=== PATIENT | female | born 1945 | race Caucasian/White ===

== ENCOUNTER → 2025-01-16 12:38 | Outpatient (REF) | payer MEDICARE, SELFPAY | LOC: HWRCS 12:38 | PROVIDERS: ATTENDING PHYSICIAN Internal Medicine Cardiovascular Disease; FAMILY PHYSICIAN Internal Medicine | DX: I48.0 Paroxysmal atrial fibrillation (principal) | CPT/HCPCS: 93306 ==

== ENCOUNTER → 2025-01-29 08:10 | Outpatient (REF) | payer MEDICARE, SELFPAY | LOC: HWRCS 08:10 | PROVIDERS: ATTENDING PHYSICIAN Internal Medicine Cardiovascular Disease; FAMILY PHYSICIAN Internal Medicine | DX: I48.0 Paroxysmal atrial fibrillation (principal) | CPT/HCPCS: 78452; 93017; A9500; J2785 ==

== ENCOUNTER 2025-02-09 15:15 | Emergency (ER) | payer MEDICARE, SELFPAY ==
[2025-02-09 15:17] VITALS: BP 182/81
[2025-02-09 18:03] VITALS: BP 174/78
--- NOTE | 2025-02-09 18:19 | ED.GENMED ---
History of Present Illness
General
Chief Complaint: Fall
Source: patient
Exam Limitations: none
Time Seen by Provider: 02/09/25 17:46
Nursing documentation reviewed up to this point in time: agreed with
History of Present Illness
History of Present Illness:
Note:
CHIEF COMPLAINT(S)
Fall with subsequent right knee injury and head trauma.
HISTORY OF PRESENT ILLNESS
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 The patient reports tripping while stepping outside, leading to a fall in which she landed on
her right knee and hit her head. She describes the knee as being swollen and as having a 'big round ball' feeling, consistent with an evolving hematoma. The knee has been iced and the swelling is reportedly reducing, though some residual swelling
and bruising persist. The shunt function was discussed, with no issues identified. The patient was primarily concerned about the potential impact on her brain due to the fall, given her medical history with the shunt. Imaging studies have confirmed
the shunt is functioning properly, and there is no acute intracranial injury. Inspection of the knee confirms it is stable despite swelling.
EXTERNAL RECORDS REVIEWED
Imaging studies confirmed the shunt is in proper working condition, and there is no acute intracranial injury.
PHYSICAL EXAM
General: Alert, no acute distress.
Skin: Warm, dry.
Head: Normocephalic, atraumatic.
Neck: Supple, trachea midline.
Eye, Ears, Nose, Mouth, and Throat: Oral mucosa moist.
Cardiovascular: Normal peripheral perfusion, No edema.
Respiratory: Respirations are non-labored.
Gastrointestinal: Abdomen nondistended.
Back: Normal range of motion, Normal alignment.
Musculoskeletal: Bruising and swelling observed on the right knee; knee is stable without signs of fracture. Normal range of motion otherwise.
Neurological: Alert and oriented to person, place, time, and situation, No focal neurological deficit observed.
Psychiatric: Cooperative, appropriate mood & affect.
PROBLEM LIST
Acute Problems:
- Mechanical fall resulting in right knee injury and head trauma.
PLAN
- Continue icing the knee to help with swelling.
- Monitor for any signs of increased pain, swelling, or neurological changes, especially given previous head trauma.
- Ensure follow-up if additional neurological symptoms or knee issues develop.
DIFFERENTIAL DIAGNOSIS
The Differential Diagnosis includes, in no particular order and is not limited to:
1. Soft tissue injury of the knee
2. Contusion
3. Concussion
4. Intracranial hemorrhage (ruled out by imaging)
5. Fracture (ruled out by clinical examination)
6. Hematoma formation
7. Ligamentous injury
8. Effusion or bursitis
9. Shunt malfunction (ruled out by imaging)
10. Synovitis
CARE-UPDATE
02/09/25 - 20:13
Patients recent right knee x-ray shows no signs of fracture, indicating a dislocation instead.
Disposition:
SUMMARY OF ENCOUNTER
The patient, an 80-year-old female with a history of a ventriculoperitoneal shunt, presented after experiencing a mechanical fall, injuring her right knee and head. Swelling and bruising were evident on the knee, which, along with imaging and
clinical examination, indicated no fracture or ligament laxity. Imaging confirmed proper shunt function and absence of acute intracranial injury. The patient expressed concern over potential brain impact due to her shunt history, but was reassured
with normal imaging findings.
DISPOSITION
Discharge.
ASSESSMENT
The patient suffered a mechanical fall leading to a head contusion and right knee contusion. Imaging shows no evidence of knee fracture or intracranial injury. Knee swelling was noted but was stable and improving with icing.
PLAN
- Continue icing the right knee to reduce swelling.
- Monitor for any increased pain, continued swelling, or new neurological symptoms.
- Follow up with primary care and return to the emergency department if symptoms worsen.
INDEPENDENT REVIEW OF LABS AND INTERPRETATION OF TESTS
- My independent interpretation of the right knee x-ray shows no signs of fracture, confirming a diagnosis of joint dislocation without ligament damage.
FOLLOW-UP INSTRUCTIONS
The patient should follow up with her primary care physician.
MEDICATION RECONCILIATION
No new medications were administered or prescribed during this emergency department visit.
MEDICAL DECISION MAKING
- Number and Complexity of Problems Addressed: Chronic conditions affecting care include a history of ventriculoperitoneal shunt placement.
Differential Diagnosis List:
1. Soft tissue injury of the knee
2. Contusion
3. Concussion
4. Intracranial hemorrhage (ruled out by imaging)
5. Fracture (ruled out by clinical examination)
6. Hematoma formation
7. Ligamentous injury
8. Effusion or bursitis
9. Shunt malfunction (ruled out by imaging)
10. Synovitis
- Data:
Category 1:
- Non-emergency department records reviewed, indicating that imaging confirmed proper shunt function and no acute intracranial injury or fracture.
Category 2:
- My independent interpretation of the right knee x-ray confirmed no fracture.
Category 3:
- No additional discussions were noted.
- Risk: Consideration of Admission/Observation: Escalation of care, including admission/observation, was considered given the complexity and risk of the patients presenting complaint and underlying comorbidities. However, ultimately, I feel the
patient is safe for outpatient management with close follow-up. Reasoning: Work-up is reassuring, does not reveal any acute life/organ-threatening processes, patients symptoms well-controlled upon reevaluation, reexamination is reassuring, vitals
are stable, patient agreeable with discharge, reliable for follow-up.
DIAGNOSIS
1. Head contusion - ICD-10: S00.93XA
2. Right knee contusion - ICD-10: S80.01XA
3. Mechanical fall - ICD-10: W19.XXXA
Phy Exam
Physical Exam
Physical Exam:
.
Course
Orders/Labs/Results
Orders:
Orders
02/09/25 15:21
CT Head W/o Iv Contrast Urgent
Comment: on Xarelto, hx of [employer] shunt
Reason For Exam: head injury
CR Knee- Right 4 Or More View* Urgent
Comment:
Reason For Exam: fall, pain and swelling
Vital Signs
Initial and Last Documented VS:
Initial Vital Signs
Temp Pulse Resp BP Pulse Ox
98.4 F 68 18 182/81 99
02/09/25 15:17 02/09/25 15:17 02/09/25 15:17 02/09/25 15:17 02/09/25 15:17
Last Documented Vital Signs
Temp Pulse Resp BP Pulse Ox
98.4 F 71 18 174/78 99
02/09/25 15:17 02/09/25 18:03 02/09/25 18:03 02/09/25 18:03 02/09/25 18:21
*Pulse Oximetry
SaO2: 99
Oxygen Mode of Delivery: Room air
Patient hypoxic: no
*Critical Care Note
Total Time (30-74mins, 75-104mins- exclusive of procedures): Not Applicable
ED Attending Note
-
Portions of this chart may have been created with voice recognition software.� Occasional wrong word or��sound alike� substitutions may have occurred due to the inherent limitations of voice recognition software.
Discharge Plan
Departure
Patient Disposition: Home (Routine Discharge)
Date of Disposition: 02/09/25
Time of Disposition: 18:20
Patient with high blood pressure during this ER visit?: Yes
Condition: Good
Discharge Problem:
Fall, Forehead contusion, Contusion of knee, right
Instructions: Head Injury in Adults (DC), Contusion (DC), BLOOD PRESSURE
Referrals:
Margot Blackmon DO [Family Provider, Internal Medicine] - Call in 1-3 days for appt
Interventions
Interventions:
*Risk Screen - Suicide Last Done: 02/09/25 15:17
*General Assessment Last Done: 02/09/25 15:17
*Nursing Disposition Last Done: 02/09/25 18:43
ED-Musculoskeletal Assessment Last Done: 02/09/25 17:45
ED- Neurological Assessment Last Done: 02/09/25 17:45
Discharge Date and Time
Discharge Date/Time: 02/09/25 18:44
Print Language: FIJIAN
== END 2025-02-09 18:44 | disposition home or self-care (01) ==
LOC: EMR 15:15
PROVIDERS: EMERGENCY PHYSICIAN Emergency Medicine; FAMILY PHYSICIAN Internal Medicine
DX: S00.03XA Contusion of scalp, initial encounter (principal); S80.01XA Contusion of right knee, initial encounter; W01.10XA Fall on same level from slipping, tripping and stumbling with subsequent striking against unspecified object, initial encounter; Z79.01 Long term (current) use of anticoagulants; Z87.828 Personal history of other (healed) physical injury and trauma; Z98.2 Presence of cerebrospinal fluid drainage device
CPT/HCPCS: 99284; 70450; 73564